=== PATIENT | male | born 1970 | race Caucasian/White ===

== ENCOUNTER 2022-06-20 11:17 | Outpatient (CLI) | payer OTHER, SELFPAY ==
[2022-06-20 12:18] LABS: Basophils Percent Auto 0.9 % (0.2-1.2); Eosinophils Absolute Auto 0.3 K/mm3 (0-0.3); Eosinophils Percent Auto 5.4 % (0-4.4); Hematocrit 41.8 % (42.0-52.0); Hemoglobin 14.2 g/dL (14.0-18.0); Immature Granulocyte Absolute 0.01 K/mm3 (0.00-0.031); Immature Granulocyte Percent A 0.2 % (0-0.5); Immature Platelet Fraction Pct 2.5 % (0.9-11.2); Lymphocytes Percent Auto 32.7 % (18.3-44.2); Mean Corpuscular Hemoglobin 30.7 pg (26-34); Mean Corpuscular Volume 90.5 fl (80-100); Mean Platelet Volume 10.5 fl (7.4-10.4); Monocytes Absolute Auto 0.6 K/mm3 (0.1-0.6); Neutrophils Absolute Auto 2.2 K/mm3 (1.3-6.7); Neutrophils Percent Auto 48.8 % (45.5-73.1); Platelet Count Result 80 k/mm3 (150-375); Red Blood Count 4.62 M/mm3 (4.6-6.20); Red Cell Distribution Width 14.8 % (11.5-14.5); White Blood Count 4.6 K/mm3 (4.5-10.0)
== END 2022-06-20 11:18 | disposition home or self-care (01) ==
LOC: ANHLAB 11:24
DX: Z79.899 Other long term (current) drug therapy (principal)
CPT/HCPCS: 36415; 85025; 85055

== ENCOUNTER 2022-09-09 23:34 | Emergency (ER) | payer OTHER, SELFPAY ==
--- NOTE | 2022-09-09 23:44 | ED.ALCOHOL ---
HPI - Alcohol General Chief Complaint: Alcohol <Soraida Simpson PA-C - Last Filed: 09/10/22 00:52> Stated Complaint: etoh <Soraida Simpson PA-C - Last Filed: 09/10/22 00:52> History of Present Illness HPI narrative: Patient is a 52-year-old male with a history of alcohol dependence here via EMS requesting alcohol detox. Patient called 911 while he was at the bar because he decided he wanted to get sober today. Admits to drinking 1/2 gallon of whiskey and vodka. He says he has a lot of personal issues going on his life and he believes the root cause is his alcohol use and wants to get sober. He has attempted to stop drinking alcohol on his own has been unsuccessful, reports withdrawal symptoms. He has been admitted to numerous psychiatric facilities in the past for alcohol detox. He denies history of withdrawal seizures. He denies any suicidal or homicidal ideation. He has no abdominal pain, nausea or vomiting, physical complaints. No illicit drug use. <Soraida Simpson PA-C - Last Filed: 09/10/22 00:52> Related Data Allergies/Adverse Reactions: Allergies Allergy/AdvReac Type Severity Reaction Status Date / Time No Known Allergies Allergy Verified 09/09/22 23:59 <Soraida Simpson PA-C - Last Filed: 09/10/22 00:52> Review of Systems Review of Systems: Gen: Denies fevers or chills Eyes: Denies eye pain or visual change ENT: Denies congestion Respiratory: Denies shortness of breath or cough CV: Denies chest pain or palpitations GI: Denies abdominal pain nausea, emesis or diarrhea denies burning, urgency, frequency or hematuria Musculoskeletal: Denies back pain or muscle pain Neuro: Denies numbness, tingling, weakness or focal weakness Skin: Denies rash Except as documented, all other systems reviewed and negative <DEVAN Bejarano Last Filed: 09/10/22 00:52> Exam Narrative: Gen: Appears disheveled, slurring his words, intoxicated appearing Eyes: EOMI, trace icterus Pulm: Respirations even and unlabored, symmetric thorax expansion, no audible stridor or visible cyanosis CV: Regular rate per telemetry GI: No distension, no voluntary/involuntary guarding Neuro: AOx4, moves all extremities without apparent difficulty or weakness, follows commands Skin: several abrasions/bruises to BLE/BUE in various stages of healing. Psych: appears intoxicated, jumping from topic to topic <Soraida Simpson PA-C - Last Filed: 09/10/22 00:52> Course Course Emergency Course: Assumed care of this patient at shift change. Patient is currently metabolizing. 0800: Patient is now alert and ambulating steadily. He has walked to the bathroom multiple times without incident. When I informed the patient of his reassuring work-up and the plan for likely discharge, he now states that he will just kill himself if we try to discharge him. Plan for repeat ethanol level and likely crisis eval. <Pepper Sung MD - Last Filed: 09/10/22 08:27> Vital Signs Vital signs: Vital Signs Pulse Rate 88 09/09/22 23:46 Respiratory Rate 14 09/09/22 23:46 Blood Pressure 130/92 H 09/09/22 23:46 Pulse Oximetry 97 09/09/22 23:46 Pulse Rate 84 09/10/22 14:33 Respiratory Rate 16 09/10/22 14:33 Blood Pressure 141/74 H 09/10/22 14:33 Pulse Oximetry 99 09/10/22 14:33 <Soraida Simpson PA-C - Last Filed: 09/10/22 00:52> Vital Signs Pulse Rate 88 09/09/22 23:46 Respiratory Rate 14 09/09/22 23:46 Blood Pressure 130/92 H 09/09/22 23:46 Pulse Oximetry 97 09/09/22 23:46 Pulse Rate 84 09/10/22 14:33 Respiratory Rate 16 09/10/22 14:33 Blood Pressure 141/74 H 09/10/22 14:33 Pulse Oximetry 99 09/10/22 14:33 <Pepper Sung MD - Last Filed: 09/10/22 08:27> Vital Signs Pulse Rate 88 09/09/22 23:46 Respiratory Rate 14 09/09/22 23:46 Blood Pressure 130/92 H 09/09/22 23:46 Pulse Oxi
[2022-09-09 23:46] VITALS: BP 130/92; PULSE 88; RESP 14; O2SAT 97
[2022-09-09 23:47] VITALS: PULSE 95; RESP 16; O2SAT 97
[2022-09-10] VITALS (7 sets, daily range): BP systolic 127–141; BP diastolic 74–77; PULSE 84–97; RESP 15–22; O2SAT 97–99
[2022-09-10 00:16] LABS: Basophils Absolute Auto 0.1 K/mm3 (0.0-0.1); Basophils Percent Auto 0.8 % (0.2-1.2); Eosinophils Absolute Auto 0.1 K/mm3 (0-0.3); Eosinophils Percent Auto 0.9 % (0-4.4); Hematocrit 39.1 % (42.0-52.0); Hemoglobin 13.8 g/dL (14.0-18.0); Immature Granulocyte Absolute 0.03 K/mm3 (0.00-0.031); Immature Granulocyte Percent A 0.3 % (0-0.5); Immature Platelet Fraction Pct 3.6 % (0.9-11.2); Lymphocytes Percent Auto 14.1 % (18.3-44.2); Mean Corpuscular HGB Conc 35.3 g/dl (32-36); Mean Corpuscular Hemoglobin 32.7 pg (26-34); Mean Corpuscular Volume 92.7 fl (80-100); Mean Platelet Volume 10.4 fl (7.4-10.4); Monocytes Absolute Auto 0.8 K/mm3 (0.1-0.6); Monocytes Percent Auto 8.3 % (2.6-8.5); Neutrophils Percent Auto 75.6 % (45.5-73.1); Platelet Count Result 47 k/mm3 (150-375); Red Blood Count 4.22 M/mm3 (4.6-6.20); Red Cell Distribution Width 14.2 % (11.5-14.5); White Blood Count 9.2 K/mm3 (4.5-10.0)
[2022-09-10 00:24] LABS: Anion Gap 14 mmol/L (8-16); Blood Urea Nitrogen 14 mg/dL (9-20); Calcium 8.3 mg/dL (8.4-10.2); Carbon Dioxide 26 mmol/L (22-30); Chloride 100 mmol/L (98-107); Estimated Glomerular Filt Rate > 60; Glucose 103 mg/dL (65-110); Magnesium 1.4 mg/dL (1.6-2.3); Potassium 3.7 mmol/L (3.4-5.0); Sodium 140 mmol/L (137-145)
[2022-09-10] MEDS: MAGNESIUM SULFATE 3GM/D5W100ML 3 GM/100 ML BAG IVPB (00:35)
[2022-09-10 00:45] LABS: Ethanol 472 mg/dL (<10)
[2022-09-10] MEDS: LORazepam INJ (*CRX) 2 MG/ML VIAL IV PUSH (01:55)
[2022-09-10] MEDS: NICOTINE (*PBKC) 21 MG PATCH 1 PATCH TRANSDERM (01:55)
--- NOTE | 2022-09-10 08:20 | PC.NURSE ---
While in room getting vitals, Dr. Sung came in to tell pt he would be DC. Pt states How can you discharge me, I haven't even started having DT's yet. I need to stay for a few days. Dr. Sung explained that we don't do detox here and that he will have to followup with [place] pt states If you discharge me I will kill myself Pt moved to room 15.
--- NOTE | 2022-09-10 08:23 | PC.NURSE ---
PT WAS TO BE DC FROM ED, THEN TOLD PROVIDER HE WAS SUICIDAL. PT TO ROOM 15. REPEAT ETOH ORDERED. WILL HAVE CRISIS SEE PT WHEN APPROPRIATE
[2022-09-10 08:58] LABS: Ethanol 287 mg/dL (<10)
[2022-09-10 09:24] LABS: Influenza A QL RT-PCR Negative (Negative); Influenza B QL RT-PCR Negative (Negative); SARS-CoV-2 RNA PCR Negative (Negative)
--- NOTE | 2022-09-10 11:25 | PC.NURSE ---
patient states that he does not want to kill himself or anyone else. he was frustrated upon discharge and that is what he said to stay. provider in room with patient and newspaper writer when he verbalized this. phone returned. discussed steps that would take place today if he were to stay here. he states that he has a bed at [facility] for today to detox and he is wanting to call someone to get that started. social media developer here at this time to give resources for detox. lunch ordered.
--- NOTE | 2022-09-10 11:48 | PC.NURSE ---
spoke with Tracy at [facility]. she states that patient has been screened by [facility] previously. [facility] was waiting for patient to be medically cleared. she states that the nurse from [facility] will do a Nurse to Nurse communication to discuss lab results for possible placement. patient updated. [phone] Tracy work number
[2022-09-10 11:54] LABS: Appearance Urine Clear (Clear); Bacteria Urine None Seen /hpf; Bilirubin Urine 2+ (Negative); Blood Urine Negative (Negative); Color Urine Dark Yellow (Yellow); Glucose Urine UA Negative (Negative); Ketones Urine Trace mg/dL (Negative); Leukocyte Esterase Ur Trace LEU/UL (Negative); Nitrate Urine Positive (Negative); Non Pathogenic Casts 0-2; Protein Urine Trace mg/dL (Negative); Specific Grav Ur 1.024 (1.001-1.035); Squamous Epithelial Cell Urine None seen /hpf (Few); Urobilinogen Urine >=8.0 mg/dL (<2.0); WBC Urine 0-5 /hpf
[2022-09-10 11:56] LABS: Add Urine Microscopic? YES
[2022-09-10 11:58] LABS: Amphetamine Screen Urine Negative (Negative); Barbiturate Screen Urine Negative (Negative); Benzodiazepines Screen Urine Negative (Negative); Cannabinoid Screen Urine Negative (Negative); Cocaine Screen Urine Negative (Negative); Methadone Screen Urine Negative (Negative); Opiate Screen Urine Negative (Negative); Phencyclidine Screen Urine Negative (Negative)
--- NOTE | 2022-09-10 12:11 | PCCCNOTE ---
Addendum entered by Leora Hernandes RN 09/10/22 14:54: Per Fang at [facility], accepted for 3 day medical detox with his [employer] insurance. Per Fang, [facility] to provide transportation, [place] address given, per Fang they will leave now to come and pick him up. Addendum entered by Leora Hernandes RN 09/10/22 14:32: Spoke with Huang at [facility] - he agrees with all the places that this child care cook has tried. If agreeable for a phone call, requests a facesheet on his desk. Addendum entered by Leora Hernandes RN 09/10/22 14:26: [facility] and [facility] unable to accept, Called to [facility] first available bed is Saturday, can try through ER but cannot guarantee a bed. Called [facility] - no answer, left voice mail message. Called to Called to [facility]-they take [employer] but require an in-person medical eval. Called to [facility] - left message. Called to [facility]- they do take [employer] and have a medical phone assessment available tomorrow, have patient call by 4pm today for that appointment. Called to [facility] -no answer, left message. Called to [facility] they do not have detox bed. Called to [facility]- they do take [employer] and have male detox beds available, Fang at intake completing a medical screen at this time. Original Note: Late entry: Met with patient briefly about finding alcohol rehab, he states that he had already been screened by [facility] for admission today, also has been at [facility] before. His phone does not have any service so unable to call, [facility] or [facility], Provided patient alcohol resource list and provided him with ER mobile to call contact faciliities that he needs.
[2022-09-10 12:41] LABS: Need Manual Microscopic Reviewed
--- NOTE | 2022-09-10 13:32 | PC.NURSE ---
spoke with yamile at [facility] and she denies acceptance d/t high acuity. she states that [facility] will be a better fit
[2022-09-10] MEDS: chlordiazePOXIDE (*CRX) 25 MG CAPSULE PO (14:10)
[2022-09-10] MEDS: ONDANSETRON INJ 4 MG/2 ML VIAL IV PUSH (14:10)
[2022-09-10] MEDS: IBUPROFEN 600 MG TABLET PO (14:11)
--- NOTE | 2022-09-10 15:10 | PC.NURSE ---
belongings returned to patient
[2022-09-10] MEDS: LOPERAMIDE HCL 2 MG CAPSULE PO (15:25)
--- NOTE | 2022-09-10 16:22 | PC.NURSE ---
report given to stormy from [facility]. patient left facility at this time. calm and cooperative
== END 2022-09-10 16:23 | disposition other institution (70) ==
PROVIDERS: Emergency Medicine; Emergency Provider Physician Assistant
DX: F10.920 Alcohol use, unspecified with intoxication, uncomplicated (principal); Z20.822 Contact with and (suspected) exposure to COVID-19; E83.42 Hypomagnesemia
CPT/HCPCS: 36415; 80048; 80307; 81001; 83735; 85025; 85055; 87636; 96365; 96375; 99284; A9270; J2060; J2405; J3475

== ENCOUNTER 2022-12-05 19:53 | Emergency (ER) | payer OTHER, SELFPAY ==
[2022-12-05] VITALS (8 sets, daily range): BP systolic 120–134; BP diastolic 66–82; PULSE 90–104; RESP 12–20; TEMP 36.4; O2SAT 91–100
--- NOTE | ~2022-12-05 | XR_ITS ---
XR chest 1V portable 12/05/2022 20:28 Indication: Nausea and vomiting. Black tarry stools. Procedure: AP portable chest Comparison: No prior studies for comparison. Findings: Bibasilar airspace disease, right greater than left, edema versus pneumonia. No pleural eff usion or pneumothorax. Mild cardiomegaly. Impression: 1: Bibasilar airspace disease, right greater than left, edema versus pneumonia. Reviewed, dictated and finalized at location A. Impression: 1: Bibasilar airspace disease, right greater than left, edema versus pneumonia.
--- NOTE | ~2022-12-05 | CT_ITS ---
EXAMINATION: CTA abdomen pelvis DATE: 12/05/2022 21:03 CDT INDICATION: Concern for acute GI bleed TECHNIQUE: Computed tomographic angiography (CTA) of the abdomen and pelvis was performed with 100 mL Omnipaque-350 intravenous contrast. The dose-length product was 1296.46 mGy-cm. Maximum intensity pr ojection 3D-reconstructions of the aorta and other arteries were constructed by the technologist on a separate workstation. Automated exposure control and iterative reconstruction technique were abi cosme. COMPARISON: None. FINDINGS: There is nodular liver surface, compatible with cirrhosis. Fatty alteration of the liver. T here is splenomegaly. There is a transjugular intrahepatic portosystemic shunt. There is ascites. Mil d diffuse subcutaneous edema. There is diffuse colonic wall thickening, consistent with pancolitis, m ost likely infectious or inflammatory. The pancreas, adrenal glands and kidneys are unremarkable. No significant vascular abnormality. There is a right pleural effusion with underlying compressive atele ctasis. IMPRESSION: 1. Pancolitis, most likely infectious/inflammatory. 2: Cirrhosis of the liver with portal hypertension. There are changes of TIPS procedure. 3: Moderate right pleural effusion with underlying compressive atelectasis. Ascites. Reviewed, dictated and finalized at location A. IMPRESSION: 1. Pancolitis, most likely infectious/inflammatory. 2: Cirrhosis of the liver with portal hypertension. There are changes of TIPS p rocedure. 3: Moderate right pleural effusion with underlying compressive atelectasis. Asc ites.
--- NOTE | 2022-12-05 19:56 | ED.GENADULT ---
HPI - General Adult General Chief complaint: GI Bleed Stated complaint: vomiting blood Time Seen by Provider: 12/05/22 19:54 History of Present Illness HPI narrative: 52 year old male history of alcohol use disorder, cirrhosis, prsented with GI bleed. Per patient, he has been having hematemesis and melena for the past two days. Was concerned, so called EMS. Denied chest pain, shortness of breath, dysuria, fevers/chills, cough, sick contacts. Related Data Allergies Allergy/AdvReac Type Severity Reaction Status Date / Time No Known Allergies Allergy Verified 09/09/22 23:59 Review of Systems Review of Systems: See HPI Exam Narrative: General: Alert, calm and cooperative, no acute distress, phonating, sitting comfortably during visit, jaundiced HEENT: Pupils equal round and reactive to light, extra ocular movements intact, no conjunctival injection, head atraumatic, neck supple without meningismus, scleral icterus Cardiovascular: Regular rate and rhythm, no visible jugular venous distension Respiratory: Lungs clear to auscultation bilaterally, no wheezing/rales/rhonchi Abdominal: Epigastric tenderness, non-distended, no guarding, no rebound/peritoneal signs, no costovertebral tenderness to palpation Back: no midline tenderness to palpation, no step offs Extremities: No edema, palpable peripheral pulses, warm, well perfused, no tenderness to bilateral calves Neurological: Alert, moving all extremities symmetrically Course Consultations Consultation #1: Case discussed with [facility] transfer for GI capabilities Date: 12/05/22 Time: 21:10 Consultation #2: Case discussed with GI Dr. Fuller, accepted. Will have under hospitalist service and will follow Date: 12/05/22 Time: 21:23 Consultation #3: Case discussed with Dr. Cecil bergeron, accepted patient. Waiting for bed assignment Date: 12/05/22 Time: 21:51 Additional Consultation(s): Case discussed with ALONZO brady [facility] hospitalist predicting [facility] for several days. Case discussed with Dr. Estrada, accepted patient. Vital Signs Vital signs: Vital Signs Temperature 97.6 F 12/05/22 19:47 Pulse Rate 96 12/05/22 19:47 Respiratory Rate 20 12/05/22 19:47 Blood Pressure 124/66 12/05/22 19:47 Pulse Oximetry 99 12/05/22 19:47 Oxygen Delivery Room Air 12/05/22 19:47 Temperature 98.1 F 12/06/22 02:45 Pulse Rate 97 12/06/22 02:48 Respiratory Rate 15 12/06/22 02:48 Blood Pressure 123/65 12/06/22 02:48 Pulse Oximetry 94 12/06/22 02:48 Oxygen Delivery Room Air 12/05/22 19:47 Procedures Other Procedure Procedure 1: Other Procedure: Total critical care time: Approximately?45 minutes Due to a high probability of clinically significant, life threatening deterioration, the patient required my highest level of preparedness to intervene emergently and I personally spent this critical care time directly and personally managing the patient. This critical care time included obtaining a history; examining the patient; pulse oximetry; ordering and review of studies; arranging urgent treatment with development of a management plan; evaluation of patient's response to treatment; frequent reassessment; and, discussions with other providers. This critical care time was performed to assess and manage the high probability of imminent, life-threatening deterioration that could result in multi-organ failure. It was exclusive of separately billable procedures and treating other patients and teaching time. Please see MDM section and the rest of the note for further information on patient assessment and treatment. Medical Decision Making MDM Narrative Medical decision making narrative: 52 year old male history of alcohol use disorder, cirrhosis, jaundiced presented with hematemesis and melena. Physical exam notable for jaundiced appearance, abdominal tenderness, vitals within normal limits. Bloodwork reviewed, transminitis, direct bilirubi
[2022-12-05] MEDS: cefTRIAXone 2 GM/NS 100 ML 2 GM/100 ML BAG IVPB (20:05)
[2022-12-05] MEDS: PANTOPRAZOLE SODIUM IV 40 MG VIAL IV PUSH (20:05)
[2022-12-05 20:14] LABS: Hematocrit 34.5 % (42.0-52.0); Hemoglobin 11.6 g/dL (14.0-18.0); Immature Platelet Fraction Pct 3.3 % (0.9-11.2); Mean Corpuscular HGB Conc 33.6 g/dl (32-36); Mean Corpuscular Hemoglobin 32.5 pg (26-34); Mean Corpuscular Volume 96.6 fl (80-100); Mean Platelet Volume 10.2 fl (7.4-10.4); Red Blood Count 3.57 M/mm3 (4.6-6.20); Red Cell Distribution Width 16.7 % (11.5-14.5); White Blood Count 4.8 K/mm3 (4.5-10.0)
[2022-12-05 20:23] LABS: INR 2.6; Prothrombin Time 29.8 Seconds (11.1-14.7)
[2022-12-05 20:24] LABS: Partial Thromboplastin Time 68.6 SECONDS (22.3-36.8)
[2022-12-05] MEDS: fentaNYL CITRATE INJ (*CRX) 100 MCG/2 ML VIAL 50 MCG IV PUSH (20:25)
[2022-12-05 20:27] LABS: Platelet Count Result 23 k/mm3 (150-375)
[2022-12-05 20:30] LABS: Alanine Aminotransferase 48 U/L (6-50); Alkaline Phosphatase 183 U/L (38-126); Ammonia 143 umol/L (9-30); Anion Gap 16 mmol/L (8-16); Aspartate Amino Transferase 343 U/L (17-59); Bilirubin Direct 20.1 mg/dL (0-0.3); Blood Urea Nitrogen 24 mg/dL (9-20); Calcium 8.3 mg/dL (8.4-10.2); Carbon Dioxide 22 mmol/L (22-30); Chloride 103 mmol/L (98-107); Estimated CRCL calculation 64 ml/min; Estimated Glomerular Filt Rate 49; Glucose 96 mg/dL (65-110); Lipase 336 U/L (23-300); Potassium 3.9 mmol/L (3.4-5.0); Sodium 141 mmol/L (137-145)
[2022-12-05 20:31] LABS: Lymphocytes Absolute Manual 0.81 K/mm3 (1.1-4.5); Monocytes Absolute Manual 0.28 K/mm3 (0.1-0.90); Monocytes Percent Manual 6 % (3-9); Neutrophils Percent Manual 77 % (46-73); Platelet Estimate Decreased (Adequate); Schistocytes None Seen (NORMAL); Total Cells Counted 100
[2022-12-05 20:32] LABS: Anisocytosis 2+ (NORMAL); Bilirubin,Total 30.3 mg/dL (0.2-1.3)
--- NOTE | 2022-12-05 20:44 | PC.NURSE ---
pt off the floor to CT @2044
[2022-12-05] MEDS: fentaNYL CITRATE INJ (*CRX) 100 MCG/2 ML VIAL IV PUSH (21:31)
[2022-12-05] MEDS: OCTREOTIDE ACETATE 50 MCG/ML VIAL IV PUSH (21:34)
[2022-12-05] MEDS: SODIUM CHLORIDE 0.9% IV 250 ML 30 ML IV CONT (21:35)
[2022-12-05] MEDS: ONDANSETRON INJ 4 MG/2 ML VIAL IV PUSH (21:42)
--- NOTE | 2022-12-05 23:20 | PC.NURSE ---
pt care and report given to ISMAEL Baker. all questions answered.
[2022-12-05] MEDS: HYDROmorphone HCL INJ (*CRX) 1 MG/ML SYR IV PUSH (23:42)
[2022-12-06] VITALS (7 sets, daily range): BP systolic 113–126; BP diastolic 64–72; PULSE 91–98; RESP 12–15; TEMP 36.7–36.9; O2SAT 94–99
[2022-12-06] MEDS: TUBING, BLOOD SET 1 EACH XX (00:21)
== END 2022-12-06 03:15 | disposition short-term general hospital (02) ==
PROVIDERS: Emergency Provider Emergency Medicine
DX: K92.2 Gastrointestinal hemorrhage, unspecified (principal)
CPT/HCPCS: 36415; 36430; 71045; 74174; 80048; 80076; 82140; 83690; 85025; 85055; 85610; 85730; 86850; 86900; 86901; 96365; 96366; 96367; 96375; 96376; 99285; P9036; C9113; J0696; J1170; J2354; J2405; J3010; J7050; Q9967